=== PATIENT | female | born 1945 | race Caucasian/White ===

== ENCOUNTER 2020-11-02 08:53 | Outpatient (CLI) | payer MEDICARE, BC | END 2020-11-02 08:54 | disposition home or self-care (01) | LOC: CSHMRI 08:53 | PROVIDERS: ATTEND Internal Medicine | DX: K86.89 Other specified diseases of pancreas (principal); K86.2 Cyst of pancreas | CPT/HCPCS: 74182 ==

== ENCOUNTER 2021-09-23 14:58 | Outpatient (CLI) | payer MEDICARE, BC | END 2021-09-23 14:59 | disposition home or self-care (01) | LOC: CSHMRI 14:58 | PROVIDERS: ATTEND Internal Medicine | DX: M54.16 Radiculopathy, lumbar region (principal); M54.32 Sciatica, left side; M47.816 Spondylosis without myelopathy or radiculopathy, lumbar region | CPT/HCPCS: 72100; 72148 ==

== ENCOUNTER 2025-05-12 14:39 | Outpatient (CLI) | payer MEDICARE, BC | END 2025-05-12 14:40 | disposition home or self-care (01) | LOC: CSHULT 14:39 | PROVIDERS: ATTEND Internal Medicine | DX: E04.1 Nontoxic single thyroid nodule (principal); E04.2 Nontoxic multinodular goiter | CPT/HCPCS: 76536 ==